=== PATIENT | male | born 1990 | race Caucasian/White ===

== ENCOUNTER 2018-05-10 23:46 | Emergency (ER) | payer SELFPAY ==
[2018-05-10 23:46] VITALS: BMI 22.2
[2018-05-11] MEDS ORDERED: Sodium Chloride 0.9% 1,000 ML IV ONE (01:21)
[2018-05-11 01:43] LABS: BASO # 0.1 K/uL (0.0-0.2); BASO % 1.1 % (0.0-2.0); EOS # 0.1 K/uL (0.0-0.7); EOS % 1.3 % (0.0-4.0); HEMOGLOBIN 15.7 g/dL (12.0-18.0); LYMPH # 1.4 K/uL (1.0-4.3); MEAN CORPUSCULAR HEMOGLOBIN 30.9 pg (27.0-31.0); MEAN CORPUSCULAR HGB CONC 33.6 g/dL (33.0-37.0); MEAN PLATELET VOLUME 8.5 fl (7.2-11.7); MONO # 0.9 K/uL (0.0-0.8); MONO % 8.3 % (0.0-10.0); NEUT # 8.9 K/uL (1.8-7.0); NEUT % 77.3 % (50.0-75.0); NRBC % 0.1 % (0.0-0.0); RBC 5.08 Mil/uL (4.40-5.90); RED CELL DISTRIBUTION WIDTH 13.4 % (11.5-14.5); WHITE BLOOD COUNT 11.5 K/uL (4.8-10.8)
[2018-05-11 01:53] LABS: ALB/GLOB RATIO 1.5 (1.0-2.1); ALBUMIN 4.5 g/dL (3.5-5.0); ALT/SGPT 30 U/L (21-72); AST/SGOT 22 U/L (17-59); BLOOD UREA NITROGEN 16 mg/dl (9-20); CALCIUM 10.3 mg/dL (8.4-10.2); GFR NON-AFRICAN AMERICAN > 60; LIPASE 196 U/L (23-300)
--- NOTE | 2018-05-11 02:50 | ED PDOC ---
"HPI: Back Chief Complaint (Provider): Back Pain, LUQ Pain History Per: Patient History/Exam Limitations: no limitations Onset/Duration Of Symptoms: Intermittent Episodes (x1 week) Current Symptoms Are (Timing): Intermittent Episodes Additional Complaint(s): 27 year old male presents to the ED for evaluation of intermittent left sided mid back pain radiating to the LUQ for one week. He describes the pain as aching and worse with movement, currently a 2/10, but states earlier tonight it was an 8/10. 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 Otherwise, (-) fever, (-) chills, (-) nausea, (-) vomiting, (-) diarrhea , (-) cough, (-) chest pain, (-) shortness of breath, (-) urinary sx. PMD: none provided <Dasha Mckeon - Last Filed: 05/11/18 06:33> <Jonas Cook - Last Filed: 05/11/18 07:07> Time Seen by Provider: 05/11/18 00:24 Chief Complaint (Nursing): Back Pain Past Medical History Reviewed: Historical Data, Nursing Documentation, Vital Signs Vital Signs: Last Vital Signs Temp 99.3 F 05/10/18 23:55 Pulse 111 H 05/10/18 23:55 Resp 20 05/10/18 23:55 BP 156/92 H 05/10/18 23:55 Pulse Ox 99 05/10/18 23:55 - Medical History PMH: No Chronic Diseases Denies: Depression - Surgical History Surgical History: No Surg Hx - Family History Family History: States: Unknown Family Hx - Social History Current smoker - smoking cessation education provided: Yes (1/2-1 pack per day) Alcohol: Other (etoh daily) Drugs: Denies - Immunization History Hx Tetanus Toxoid Vaccination: No Hx Influenza Vaccination: No Hx Pneumococcal Vaccination: No <Dasha Mckeon - Last Filed: 05/11/18 06:33> Vital Signs: Last Vital Signs Temp 99.3 F 05/10/18 23:55 Pulse 111 H 05/10/18 23:55 Resp 20 05/10/18 23:55 BP 156/92 H 05/10/18 23:55 Pulse Ox 99 09/15/18 06:33 <Jonas Cook - Last Filed: 05/11/18 07:07> - Home Medications Home Medications: Ambulatory Orders Medication Instructions Recorded Naproxen 500 mg PO BID PRN #20 tab 05/11/18 - Allergies Allergies/Adverse Reactions: Allergies Allergy/AdvReac Type Severity Reaction Status Date / Time No Known Allergies Allergy Verified 05/10/18 23:55 Review of Systems ROS Statement: Except As Marked, All Systems Reviewed And Found Negative Constitutional: Negative for: Fever, Chills Cardiovascular: Negative for: Chest Pain Respiratory: Negative for: Cough, Shortness of Breath Gastrointestinal: Positive for: Abdominal Pain (LUQ). Negative for: Nausea, Vomiting, Diarrhea Genitourinary Male: Negative for: Dysuria, Frequency Musculoskeletal: Positive for: Back Pain (left sided mid back radiating to LUQ) <Dasha Mckeon - Last Filed: 05/11/18 06:33> Physical Exam - Reviewed Nursing Documentation Reviewed: Yes Vital Signs Reviewed: Yes - Physical Exam Comments: GENERAL APPEARANCE: Patient is awake, alert, oriented x 3, in no acute distress. SKIN: Warm, dry; (-) cyanosis. EYES: (-) conjunctival pallor. ENMT: Mucous membranes moist. NECK: (-) tenderness, (-) stiffness, (-) lymphadenopathy. CHEST AND RESPIRATORY: (-) rales, (-) rhonchi, (-) wheezes; breath sounds equal bilaterally. HEART AND CARDIOVASCULAR: (-) irregularity; (-) murmur, (-) gallop. ABDOMEN AND GI: Soft; (+) LUQ tenderness; (-) palpable mass, (-) guarding, (-) rebound. BACK: (+) left para thoracic tenderness, (-) mild spasm, (-) direct bony tenderness, (-) deformity. Straight leg raising (-) bilaterally. (-) CVA tenderness bilaterally. EXTREMITIES: (-) deformity. Distal pulses good bilaterally. NEURO AND PSYCH: Mental status as above. Intact sensation bilaterally; normal strength in extension of the knees, plantar and dorsiflexion of the toes. DTRs symmetric. <Dasha Mckeon - Last Filed: 05/11/18 06:33> - Laboratory Results Result Diagrams: 05/11/18 01:40 05/11/18 01:40 Urine dip results: Negative for: Leukocyte Esterase, Blood, Nitrate, Ketones, Glucose, Bilirubin, Protein - ECG O2 Sat by Pulse Oximetry: 99 (RA) Pulse Ox Interpretation: Normal <Dasha Mckeon - Last Filed: 05/11/18 06:33> - Laboratory Results Result Diagrams: 05/11/18 01:40 05/11/18 01:40 <Jonas Cook - Last Filed: 05/11/18 07:07> Medical Decision Making Medical Decision Making: Time: 0121 Initial Impression: acute back and abdominal pain Initial Plan: --Alcohol serum --CMP --Drug screen --Lipase --U-dip --CBC with differential --Normal saline IV --Pepcid 40mg IVP --Toradol 30mg IVP 0250 CBC and CMP grossly unremarkable. Serum Alcohol < 10. Pending Urine studies. 0345 Udip unremarkable. On re-evaluation, patient with persistent LUQ pain. CT abdomen/pelvis with IV contrast ordered. 0630 Continuation of care per Dr Cook pending CT read and re-evaluation. Scribe Attestation: Documented by Sophy Dave, acting as a scribe for Dasha Mckeon PA-C. Provider Scribe Attestation: All medical record entries made by the Scribe were at my direction and personally dictated by me. I have reviewed the chart and agree that the record accurately reflects my personal performance of the history, physical exam, medical decision making, and the department course for this patient. I have also personally directed, reviewed, and agree with the discharge instructions and disposition. <Dasha Mckeon - Last Filed: 05/11/18 06:33> Medical Decision Making: EXAM: CT Abdomen and Pelvis With Intravenous Contrast EXAM DATE/TIME: 05/11/2018 3:55 AM CLINICAL HISTORY: 27 years old, male; Left upper quadrant pain. TECHNIQUE: Axial computed tomography images of the abdomen and pelvis with intravenous contrast. All CT scans at this facility use at least one of these dose optimization techniques: automated exposure control; mA and/or kV adjustment per patient size (includes targeted exams where dose is matched to clinical indication); or iterative reconstruction. Coronal and sagittal reformatted images were created and reviewed. CONTRAST: 95 ml of OMNIPAQUE-300 administered intravenously. COMPARISON: No relevant prior studies available. FINDINGS: Lower thorax: No acute basilar lung consolidation. ABDOMEN: Liver: The liver is not enlarged. There are multiple low attenuation lesions, measuring up to 6 mm in size, most likely due to hepatic cysts. Gallbladder and bile ducts: No calcified gallstones, gallbladder wall thickening , or pericholecystic inflammation. No biliary ductal dilation. Pancreas: No pancreatic mass, inflammation, or ductal dilation. Spleen: The spleen is homogeneous and is not enlarged. Adrenals: No adrenal mass. Kidneys and ureters: No hydronephrosis or nephrolithiasis. No hydroureter or ureterolithiasis. There are low attenuation renal lesions, largest on the right measuring up to 19 mm in diameter, most likely due to renal cysts. Stomach and bowel: No bowel obstruction or diverticulitis. Appendix: The appendix has a normal caliber with no wall thickening. No periappendiceal stranding. HOMER BROOKS | Preliminary Radiology Report PATIENT AMBASSADOR (QA) DISCREPANCY? If there is a discrepancy between the preliminary and final interpretation, please notify [facility] via [email or web address]. If you do not have access to our QA portal, call our QA team at [phone] CONFIDENTIALITY STATEMENT This report is intended only for the use of the referring physician, and only in accordance with law, If you received this in error, call [phone] Page 2 of 2 PELVIS: Bladder: The bladder is small in volume. No bladder calculus. Reproductive: Unremarkable as visualized. ABDOMEN and PELVIS: Intraperitoneal space: No ascites or pneumoperitoneum. Bones/joints: No acute osseous abnormality. Soft tissues: Unremarkable. Vasculature: No abdominal aortic aneurysm. No iliac or common femoral artery aneurysm. The mesenteric arteries are patent. The mesenteric and portal veins are patent. Lymph nodes: No pathologically enlarged lymph nodes. IMPRESSION: 1. No acute abnormality identified in the left upper quadrant. 2. Probable hepatic and renal cysts Patient reports that he's feeling much better. Advised patient to abstain from substance/alcohol abuse and to followup with PMD. Patient states he will apply for [facility] Sunday and in [facility]. <Jonas Cook - Last Filed: 05/11/18 07:07> Disposition <LindaDasha - Last Filed: 05/11/18 06:33> - Disposition Disposition: Routine/Home Disposition Time: 07:07 <Jonas Cook - Last Filed: 05/11/18 07:07> - Clinical Impression Clinical Impression: Abdominal pain, Back pain - Disposition Referrals: [facility] [Outside] [place] MD [Medical Doctor] - Condition: STABLE Additional Instructions: The emergency medical care you received today was directed towards the acute presenting symptoms. If you were prescribed any medication, please fill it and give as directed. It may take several days for your symptoms to resolve. Return to the Emergency Department at any time if symptoms worsen, do not improve, or if any other problems arise. Please contact your doctor in 2 days for re-evaluation and follow up / or call one of the physicians/clinics you have been referred to that are listed on the Patient Visit Information form that is included in your discharge packet. Bring any paperwork you were given at discharge with you along with any medications to your follow up visit. Our treatment cannot replace ongoing medical care by a primary care provider (PCP) outside of the emergency department. Prescriptions: Naproxen 500 mg PO BID PRN #20 tab PRN Reason: Pain, Moderate (4-7) Instructions: Low Back Pain (DC), Acute Abdomen (Belly Pain), Adult (DC), Flank Pain (DC) Forms: [employer] (Arabic) Print Language: SINHALA Results - Lab Results Lab Results: 05/11/18 05/11/18 05/11/18 04:31 01:40 01:40 WBC 11.5 H RBC 5.08 Hgb 15.7 Hct 46.8 MCV 92.0 MCH 30.9 MCHC 33.6 RDW 13.4 Plt Count 301 MPV 8.5 Neut % (Auto) 77.3 H Lymph % (Auto) 12.0 L Hettinger % (Auto) 8.3 Eos % (Auto) 1.3 Baso % (Auto) 1.1 Neut # (Auto) 8.9 H Lymph # (Auto) 1.4 Hettinger # (Auto) 0.9 H Eos # (Auto) 0.1 Baso # (Auto) 0.1 Sodium 140 Potassium 3.6 Chloride 106 Carbon Dioxide 23 Anion Gap 15 BUN 16 Creatinine 0.8 Est GFR ( Amer) > 60 Est GFR (Non-Af Amer) > 60 Random Glucose 104 Calcium 10.3 H Total Bilirubin 1.1 AST 22 ALT 30 Alkaline Phosphatase 66 Total Protein 7.6 Albumin 4.5 Globulin 3.1 Albumin/Globulin Ratio 1.5 Lipase 196 Urine Opiates Screen Negative Urine Methadone Screen Negative Ur Barbiturates Screen Negative Ur Phencyclidine Scrn Negative Ur Amphetamines Screen Negative U Benzodiazepines Scrn Negative U Oth Cocaine Metabols Negative U Cannabinoids Screen Positive H Alcohol, Quantitative < 10 <Dasha Mckeon - Last Filed: 05/11/18 06:33> - Lab Results Lab Results: 05/11/18 05/11/18 05/11/18 04:31 01:40 01:40 WBC 11.5 H RBC 5.08 Hgb 15.7 Hct 46.8 MCV 92.0 MCH 30.9 MCHC 33.6 RDW 13.4 Plt Count 301 MPV 8.5 Neut % (Auto) 77.3 H Lymph % (Auto) 12.0 L Hettinger % (Auto) 8.3 Eos % (Auto) 1.3 Baso % (Auto) 1.1 Neut # (Auto) 8.9 H Lymph # (Auto) 1.4 Hettinger # (Auto) 0.9 H Eos # (Auto) 0.1 Baso # (Auto) 0.1 Sodium 140 Potassium 3.6 Chloride 106 Carbon Dioxide 23 Anion Gap 15 BUN 16 Creatinine 0.8 Est GFR ( Amer) > 60 Est GFR (Non-Af Amer) > 60 Random Glucose 104 Calcium 10.3 H Total Bilirubin 1.1 AST 22 ALT 30 Alkaline Phosphatase 66 Total Protein 7.6 Albumin 4.5 Globulin 3.1 Albumin/Globulin Ratio 1.5 Lipase 196 Urine Opiates Screen Negative Urine Methadone Screen Negative Ur Barbiturates Screen Negative Ur Phencyclidine Scrn Negative Ur Amphetamines Screen Negative U Benzodiazepines Scrn Negative U Oth Cocaine Metabols Negative U Cannabinoids Screen Positive H Alcohol, Quantitative < 10 <Jonas Cook - Last Filed: 05/11/18 07:07>"
[2018-05-11] MEDS ORDERED: Iohexol 300 100 ML IJ ONE (04:18)
[2018-05-11] MEDS ORDERED: Sodium Chloride 0.9% 50 ML IV ONE (04:18)
[2018-05-11 04:51] LABS: BARBITURATES, UR NEGATIVE (NEGATIVE); BENZODIAZEPINES, UR NEGATIVE (NEGATIVE); OPIATES, UR NEGATIVE (NEGATIVE); PHENCYCLIDINE, UR NEGATIVE (NEGATIVE)
[2018-05-11 07:12] VITALS: BP 134/88; PULSE 89; RESP 16; TEMP 98.5; O2SAT 98
--- NOTE | 2018-05-11 14:27 | CT ---
Date of service: 05/11/2018 PROCEDURE: CT Abdomen and Pelvis with contrast HISTORY: LUQ pain COMPARISON: None. TECHNIQUE: Contrast dose: 95 milliliters Radiation dose: Total exam DLP = 692 mGy-cm. This CT exam was performed using one or more of the following dose reduction techniques: Automated exposure control, adjustment of the mA and/or kV according to patient size, and/or use of iterative reconstruction technique. FINDINGS: LOWER THORAX: Unremarkable. Visualized esophagus is normal. Stomach is unremarkable with decompressed limiting evaluation for wall thickening. Duodenum is within normal limits. LIVER: Evaluation of the liver reveals a few very tiny 2-3 millimeter areas of hypodensity in the liver probably reflective of very tiny cysts and more than likely representing benign etiology. No intrahepatic ductal dilatation or solid mass is seen in the liver. No perihepatic collections are noted. GALLBLADDER AND BILE DUCTS: Unremarkable. PANCREAS: Unremarkable. No gross lesion or ductal dilatation. SPLEEN: Unremarkable. ADRENALS: Unremarkable. No mass. KIDNEYS AND URETERS: There is evidence of a small low-density round smoothly marginated low-density right renal cyst. A few other tiny low-density probable cysts are seen in the left kidney and right kidney. Accessory lower pole right renal artery is noted representing anatomic variation. VASCULATURE: Unremarkable. No aortic aneurysm. BOWEL: Unremarkable. No obstruction. No gross mural thickening. APPENDIX: Normal appendix. PERITONEUM: Unremarkable. No free fluid. No free air. LYMPH NODES: Unremarkable. No enlarged lymph nodes. BLADDER: Unremarkable. REPRODUCTIVE: Unremarkable. BONES: No acute fracture. OTHER FINDINGS: None. IMPRESSION: No appreciable acute inflammatory process in the abdomen or pelvis. Small renal cysts and probable tiny scattered hepatic cysts. This agrees with preliminary report provided by the on-call radiologist.
== END 2018-05-11 07:28 | disposition home or self-care (01) ==
LOC: H.ER 23:46
DX: R10.12 Left upper quadrant pain (principal); M54.9 Dorsalgia, unspecified
CPT/HCPCS: 74177; 80053; 83690; 85025; 96374; 96375; 99283; G0480; J1885; J7040; Q9967